=== PATIENT | male | born 1980 | race African-American/Black ===

== ENCOUNTER 2018-05-28 10:47 | Emergency (ER) | payer OTHER ==
[~2018-05-28] VITALS: Ht 180.3 cm; Wt 106.6 kg
[2018-05-28] MEDS ORDERED: ROBAXIN500 MG PO (11:41)
[2018-05-28 11:49] VITALS: BP 140/62
== END 2018-05-28 11:49 | disposition home or self-care (01) ==
LOC: M.ERS 10:47
DX: S29.011A Strain of muscle and tendon of front wall of thorax, initial encounter (principal); V49.49XA Driver injured in collision with other motor vehicles in traffic accident, initial encounter; Y93.89 Activity, other specified; Y92.89 Other specified places as the place of occurrence of the external cause; Y99.8 Other external cause status

== ENCOUNTER 2019-06-04 19:38 | Emergency (ER) | payer OTHER ==
[~2019-06-04] VITALS: Ht 180.3 cm; Wt 105.2 kg
[~2019-06-04 19:38] MED LIST: ROBAXIN500 MG PO
[2019-06-04] MEDS ORDERED: HYDROCODONE-ACE15 ML PO (20:39)
[2019-06-04] MEDS ORDERED: AMOXICILLIN 50500 M1 PO (20:39)
[2019-06-04 20:45] VITALS: BP 112/65
== END 2019-06-04 20:45 | disposition home or self-care (01) ==
LOC: M.ERS 19:38
DX: J02.0 Streptococcal pharyngitis (principal)